=== PATIENT | female | born 1990 | race Caucasian/White ===

== ENCOUNTER 2023-01-31 22:37 | Emergency (ER) | payer MEDICAID, OTHER ==
[~2023-01-31] VITALS: Ht 162.6 cm; Wt 67.1 kg
[2023-01-31 22:47] VITALS: BP 111/68; TEMP 98
[2023-02-01 00:18] VITALS: O2SAT 99
== END 2023-02-01 00:19 | disposition home or self-care (01) ==
LOC: ER 22:44
DX: S61.211A Laceration without foreign body of left index finger without damage to nail, initial encounter (principal); W26.0XXA Contact with knife, initial encounter; Y93.89 Activity, other specified; Y92.090 Kitchen in other non-institutional residence as the place of occurrence of the external cause; Y99.8 Other external cause status